=== PATIENT | male | born 1945 | race Caucasian/White ===

== ENCOUNTER 2018-01-26 20:18 | Emergency (ER) | payer MEDICARE ==
[2018-01-26] MEDS ORDERED: Albuterol/Ipratropium NEB.SOL* Albuterol 2.5 MG/Ipratropium 0.5 MG 3 ML INH ONE (21:06)
--- NOTE | 2018-01-26 21:06 | UC ---
Respiratory Complaint HPI - HPI Summary HPI Summary: C/O URI symptoms for 1-2 weeks. Now with more SOB with wheezing. Started on Flonase - History of Current Complaint Chief Complaint: UCRespiratory Stated Complaint: COUGH, DIFF BREATHING Time Seen by Provider: 01/26/18 21:00 Hx Obtained From: Patient Onset/Duration: Gradual Onset, Lasting Weeks - 2, Worse Since - last several days Timing: Constant Severity Initially: Mild Severity Currently: Moderate Pain Intensity: 0 Character: Cough: Nonproductive Aggravating Factors: Deep Breaths, Recumbent Position Alleviating Factors: Nothing Associated Signs And Symptoms: Positive: Dyspnea, Wheezing, URI Related History: Seasonal Allergies - Allergies/Home Medications Allergies/Adverse Reactions: Allergies Allergy/AdvReac Type Severity Reaction Status Date / Time No Known Allergies Allergy Verified 01/26/18 20:26 Home Medications: Home Medications Atorvastatin* [Lipitor 40 MG*] 40 mg PO DAILY 01/26/18 [History Confirmed ] Cabergoline 0.25 mg PO WEEKLY 01/26/18 [History Confirmed 01/26/18] Dulaglutide [Trulicity] 1.5 mg INJ WEEKLY 01/26/18 [History Confirmed 01/26/18] Insulin Glargine,Hum.rec.anlog [Lantus] 20 units INJ BEDTIME 01/26/18 [History Confirmed 01/26/18] Insulin Lispro [Humalog] 1 each INJ AC 01/26/18 [History Confirmed 01/26/18] Levothyroxine Sodium [Synthroid] 50 mcg PO DAILY 01/26/18 [History Confirmed ] Metformin HCl [Fortamet] 1,000 mg PO DAILY 01/26/18 [History Confirmed 01/26/18] Ramipril 10 mg PO DAILY 01/26/18 [History Confirmed 01/26/18] PMH/Surg Hx/FS Hx/Imm Hx Endocrine History: Diabetes - Surgical History Surgical History: Yes Surgery Procedure, Year, and Place: HERNIA REPAIR. TONSILLECTOMY. BILATERAL CATARACTS AND CORNEA TRANSPLANTS - Family History Known Family History: Positive: Cardiac Disease, Hypertension, Diabetes - Social History Occupation: Retired Lives: With Family Alcohol Use: Occasionally Substance Use Type: None Smoking Status (MU): Never Smoked Tobacco Review of Systems ENT: Nasal Discharge Respiratory: Shortness Of Breath, Cough Is Patient Immunocompromised?: Yes - Diabetes All Other Systems Reviewed And Are Negative: Yes Physical Exam Triage Information Reviewed: Yes Appearance: Well-Appearing, No Pain Distress, Well-Nourished Vital Signs: Initial Vital Signs Temp 97.1 F 01/26/18 20:21 Pulse 80 01/26/18 20:21 Resp 18 01/26/18 20:21 BP 147/81 01/26/18 20:21 Pulse Ox 99 01/26/18 20:21 Vital Signs Reviewed: Yes Eyes: Positive: Conjunctiva Clear ENT: Positive: Pharynx normal, TMs normal Neck exam: Normal Respiratory: Positive: Wheezing Cardiovascular: Positive: RRR Musculoskeletal Exam: Normal Neurological Exam: Normal Psychological Exam: Normal Skin Exam: Normal UC Diagnostic Evaluation - Laboratory O2 Sat by Pulse Oximetry: 99 Respiratory Course/Dx - Differential Dx/Diagnosis Differential Diagnosis/HQI/PQRI: Asthma, Lower Resp Infection, Sinusitis Provider Diagnoses: Acute URI. Acute bronchospasm Discharge - Sign-Out/Discharge Documenting (check all that apply): Patient Departure All imaging exams completed and their final reports reviewed: No Studies - Discharge Plan Condition: Stable Disposition: HOME Prescriptions: predniSONE TAB* [Deltasone 20 MG TAB*] 20 mg PO DAILY #18 tab Patient Education Materials: Bronchospasm (ED), Prednisone (By mouth), How to Use a Metered-Dose Inhaler and a Spacer (ED) Referrals: No Primary Care Phys,NOPCP [Primary Care Provider] - Additional Instructions: prednisone will make your sugars go up. You may have to increase your basal insulin. - Billing Disposition and Condition Condition: STABLE Disposition: Home
[2018-01-26] MEDS ORDERED: predniSONE TAB* 20 MG PO ONE (21:07)
[2018-01-26] MEDS ORDERED: Albuterol HFA INHALER* 8 gm MDI INH ONE (21:38)
== END 2018-01-26 21:57 | disposition home or self-care (01) ==
LOC: UCCORT 20:18
DX: J98.01 Acute bronchospasm (principal); J06.9 Acute upper respiratory infection, unspecified; E11.9 Type 2 diabetes mellitus without complications; Z79.4 Long term (current) use of insulin; Z79.84 Long term (current) use of oral hypoglycemic drugs
CPT/HCPCS: 99203; A9270-GY; G0463; J7512